=== PATIENT | male | born 1950 | race Caucasian/White ===

== ENCOUNTER 2018-11-21 10:13 | Day surgery (SDC) | payer OTHER ==
[2018-11-14 10:33] VITALS: BMI 24.7
[2018-11-21] MEDS ORDERED: PROPOFOL 20 ML ONE (11:26)
[2018-11-21 12:58] VITALS: PULSE 56; TEMP 98.2
[2018-11-21 13:03] VITALS: BP 120/62
--- NOTE | 2018-11-23 17:08 | PATH ---
Surgical Pathology Report Patient Name: JOSEPH WALTON [facility]. Rec. #: [id number] /Age/Gender: 1950 (Age: 68) / M Account: [id number] Location: [facility] Taken: 11/21/2018 Received: 11/21/2018 Reported: 11/23/2018 Physicians: Flores Carpenter M.D. Specimen(s) Received POLYP TRANSVERSE COLON Clinical History Screening Postoperative diagnosis: Colon polyps, hemorrhoids Final Diagnosis TRANSVERSE COLON, POLYP, BIOPSY: POLYPOID COLONIC MUCOSA WITHOUT SIGNIFICANT PATHOLOGIC FINDINGS. Electronically Signed Flores Kirkpatrick M.D. Gross Description Received in formalin, labeled "biopsy polyp transverse colon" is a fine, irregular portion of soft tissue measuring 0.3 cm. in greatest dimension. The specimen is submitted in toto in one cassette. /11/22/2018 saudi11/22/2018
== END 2018-11-21 13:02 | disposition home or self-care (01) ==
LOC: FASU-ENDO 10:13
PROVIDERS: ATTEND Internal Medicine Gastroenterology
PROC: 0DBL8ZX Excision of Transverse Colon, Via Natural or Artificial Opening Endoscopic, Diagnostic (ICD-10-PCS; principal; 2018-11-21 12:00)
DX: Z12.11 Encounter for screening for malignant neoplasm of colon (principal); D12.3 Benign neoplasm of transverse colon; K64.1 Second degree hemorrhoids
CPT/HCPCS: 88305-TC